=== PATIENT | female | born 1980 | race Native Hawaiian/Other Pacific Islander ===

== ENCOUNTER → 2024-01-13 | Outpatient (CLI) | payer MEDICARE, OTHER ==
--- NOTE | 2024-01-13 09:08 | USB ---
Reason for Exam: Clinical finding. Risk Values: Sarah Beth 5 year model risk: 0.5%. NCI Lifetime model risk: 6.5%. Technique: Method: Targeted. Findings: The area of palpable concern of the right breast, the axilla of the right breast and the retroareolar of the right breast were scanned. Targeted ultrasound palpable 12:00 position including scanning of the subareolar region and axilla. At the palpable 12:00 site, and large 2.5 x 2.1 x 1.6 cm described oval hypoechoic mass with internal calcifications on the mammographic correlate. Posterior transmission is present. This may represent a fibroadenoma. Biopsy can confirm. Otherwise dense tissues are present. No axillary lymphadenopathy. Overall Assessment: Suspicious, BI-RAD 4 Management: Ultrasound Core Biopsy of the right breast. Electronically signed and approved by: Aleta Mcconnell M.D. Radiologist
== END | disposition home or self-care (01) ==
LOC: RADUSWWP 08:21
PROVIDERS: ATTEND Family Medicine
DX: N63.15 Unspecified lump in the right breast, overlapping quadrants (principal); R92.8 Other abnormal and inconclusive findings on diagnostic imaging of breast

== ENCOUNTER → 2024-01-29 | Day surgery (SDC) | payer MEDICARE, OTHER | END | disposition home or self-care (01) | LOC: RADUSWWP 07:44 | PROVIDERS: ATTEND Family Medicine | DX: D24.1 Benign neoplasm of right breast (principal) | CPT/HCPCS: 88305; 77065; 19083; A4648 ==

== ENCOUNTER → 2024-10-17 | Outpatient (CLI) | payer MEDICARE, OTHER ==
--- NOTE | 2024-10-17 09:43 | CT ---
EXAMINATION TYPE: CT brain w con DATE OF EXAM: 10/17/2024 9:22 AM COMPARISON: None. CLINICAL INDICATION: Female, 44 years old with history of R55 SYNCOPE; syncope TECHNIQUE: Axial CT images were obtained with coronal and sagittal reformats created and reviewed. Contrast used:100ml mL of Isovue 300 with IV Contrast, Oral contrast used: none. CT DLP: 1031.3 mGycm, Automated exposure control for dose reduction was used. FINDINGS: Extra-axial spaces: No abnormal extra-axial fluid collections. Ventricular system: Within normal limits Cerebral parenchyma: No acute intraparenchymal hemorrhage or mass effect. The burch-white junction is well differentiated. No abnormal enhancement is seen after the administration of intravenous contras t. Cerebellum: Unremarkable. Mass effect: No evidence of midline shift. Intracranial vasculature: Visualized arterial vasculature appears patent. No evidence for high-grade stenosis or aneurysmal dilation. Soft tissues: Normal. Calvarium/osseous structures: No depressed skull fracture. Paranasal sinuses and mastoid air cells: Clear. Visualized orbits: Orbital contents are intact. IMPRESSION: No acute intracranial process. [facility], , 10/17/2024 9:41 AM
== END | disposition home or self-care (01) ==
LOC: RADCTMAIN 08:23
PROVIDERS: ATTEND Family Medicine
DX: R55 Syncope and collapse (principal)
CPT/HCPCS: 70460; Q9967